=== PATIENT | male | born 1970 | race Caucasian/White ===

== ENCOUNTER 2021-03-07 10:05 | Emergency (ER) | payer OTHER ==
[~2021-03-07] VITALS: Ht 172.7 cm; Wt 81.8 kg
[~2021-03-07 10:05] MED LIST: NOCURR
[2021-03-07 10:07] VITALS: BP 152/96
[2021-03-07] MEDS ORDERED: LIDOCAINE 1% 10 ML VIAL SQ ONE (11:15)
[2021-03-07] MEDS ORDERED: BACITRACIN 0.9 GM PACKET OINTMENT TP ONE (11:15)
== END 2021-03-07 12:09 | disposition home or self-care (01) ==
LOC: EMS 10:08
DX: S81.011A Laceration without foreign body, right knee, initial encounter (principal); W26.0XXA Contact with knife, initial encounter; Y93.89 Activity, other specified; Y92.89 Other specified places as the place of occurrence of the external cause; Y99.8 Other external cause status
CPT/HCPCS: 12002; 73562; 99283; J3490